=== PATIENT | female | born 1960 | race Caucasian/White ===

== ENCOUNTER → 2016-10-01 | Outpatient (CLI) | payer MEDICAID ==
--- NOTE | 2016-10-02 10:42 | MM ---
Reason for exam: screening (asymptomatic). Last mammogram was performed 1 year and 2 months ago. Physical Findings: A clinical breast exam by your physician is recommended on an annual basis and results should be correlated with mammographic findings. MG 3D Screening Mammo W/Cad Bilateral CC and MLO view(s) were taken. Prior study comparison: July 27, 2015, mammogram. May 11, 2014, mammogram. The breast tissue is heterogeneously dense. This may lower the sensitivity of mammography. Finding: There are typically benign round calcifications in both breasts. There is a chronic nodularity in the right breast. There is no discrete abnormality. ASSESSMENT: Benign, BI-RAD 2 RECOMMENDATION: Routine screening mammogram of both breasts in 1 year.
== END | disposition home or self-care (01) ==
LOC: RADMAMWWP 07:40
PROVIDERS: ATTEND Obstetrics & Gynecology
DX: Z12.31 Encounter for screening mammogram for malignant neoplasm of breast (principal)
CPT/HCPCS: 77063; G0202

== ENCOUNTER → 2016-11-20 | Outpatient (CLI) | payer MEDICAID ==
[2016-11-20 08:57] LABS: ALT 38 U/L (9-52); AST 22 U/L (14-36); Alkaline Phosphatase 103 U/L (38-126); Anion Gap 11 mmol/L; Blood Urea Nitrogen 17 mg/dL (7-17); Calcium 9.9 mg/dL (8.4-10.2); Carbon Dioxide 24 mmol/L (22-30); Chloride 105 mmol/L (98-107); Cholesterol 219 mg/dL (<200); Glucose 138 mg/dL (74-99); HDL Cholesterol 75 mg/dL (40-60); Non-African American GFR(MDRD) >60 (>60 ml/min/1.73 sqM); Potassium 4.9 mmol/L (3.5-5.1); Sodium 140 mmol/L (137-145); Total Bilirubin 0.7 mg/dL (0.2-1.3); Total Protein 7.6 g/dL (6.3-8.2); Triglycerides 143 mg/dL (<150)
[2016-11-20 09:07] LABS: CH 33.3; CHCM 33.7; HCT 46.4 % (34.0-46.0); HDW 2.44; HGB 14.9 gm/dL (11.4-16.0); MCH 31.9 pg (25.0-35.0); MCHC 32.2 g/dL (31.0-37.0); MCV 99.1 fL (80.0-100.0); Mean Platelet Volume 7.6; RBC 4.68 m/uL (3.80-5.40); RDW 12.7 % (11.5-15.5)
[2016-11-20 09:42] LABS: Hepatitis C Virus IgG Ab Negative (Negative); Hepatitis C Virus IgG Index 0.05
== END | disposition home or self-care (01) ==
LOC: LABWHC1 08:18
PROVIDERS: ATTEND Family Medicine
DX: R07.9 Chest pain, unspecified (principal); Z13.9 Encounter for screening, unspecified
CPT/HCPCS: 36415; 80053; 80061; 84443; 85027; 86803

== ENCOUNTER → 2016-11-23 | Outpatient (CLI) | payer MEDICAID ==
--- NOTE | 2016-11-23 11:00 | NM ---
EXAMINATION TYPE: NM stress cardiolite complete DATE OF EXAM: 11/23/2016 COMPARISON: NONE HISTORY: Chest pain TECHNIQUE: After the intravenous administration of 10.9 mCi Tc 99m Sestamibi - Rest images obtained 45 minutes post injection. The patient exercised using a TIM protocol and 1 minute prior to peak exercise was injected with 26.2 mCi Tc 99m Sestamibi - Stress images obtained 25 minutes post injecti on. FINDINGS: Targeted heart rate was achieved during performance of the study. Review of stress and rest SPECT mateusz ges demonstrates no distinct perfusion abnormality. Gated analysis shows normal wall motion with an estimated left ventricular ejection fraction of 65 %. IMPRESSION: 1. No stress-induced ischemic change
--- NOTE | 2016-11-23 11:27 | EST ---
DATE OF SERVICE: 11/23/2016 AGE: 56Y SEX: F HT: 5'6" WT: 187 lbs. Protocol Boyd: X Other: Cardiolite Stage: II Dur. of Exercise: 7:15 *Heart Rate Blood Pressure *Rest: 92 Rest: 156/106 * *Max. Achieved: 150 Maximum BP: 178/87 85% PMHR: 140 100% PMHR: 165 *METS: 7.7 INDICATIONS: Chest pain. MEDICATIONS: Norvasc, Toprol, Prilosec. Patient was exercised for a total period of 7 minutes and 15 seconds. Peak heart rate of 150 was achieved. Maximum blood pressure of 178/87 mmHg was noted. Resting EKG shows normal sinus rhythm with normal GA interval and QRS duration and normal ST-T waves. No ST segment depression suggestive of ischemia is noted. Patient complained of some shortness of breath during exercise. FINAL IMPRESSION: 1. There is no evidence of any ST segment depression to suggest ischemia during exercise. 2. Patient's exercise tolerance is below average. 3. The results of the nuclear study will follow.
== END ==
LOC: RADNMMAIN 07:56
PROVIDERS: ATTEND Family Medicine
DX: R07.9 Chest pain, unspecified (principal)
CPT/HCPCS: 93017; 78452; A9500

== ENCOUNTER → 2017-08-07 | Outpatient (CLI) | payer MEDICAID ==
[2017-08-07 08:53] LABS: ALT 55 U/L (9-52); AST 29 U/L (14-36); Albumin 4.2 g/dL (3.5-5.0); Alkaline Phosphatase 125 U/L (38-126); Anion Gap 13 mmol/L; Blood Urea Nitrogen 13 mg/dL (7-17); Carbon Dioxide 25 mmol/L (22-30); Chloride 104 mmol/L (98-107); Cholesterol 235 mg/dL (<200); Glucose 145 mg/dL (74-99); HDL Cholesterol 76 mg/dL (40-60); LDL Cholesterol,Calculated 132 mg/dL (0-99); Potassium 4.7 mmol/L (3.5-5.1); Sodium 142 mmol/L (137-145); Total Bilirubin 0.5 mg/dL (0.2-1.3); Total Protein 7.4 g/dL (6.3-8.2); Triglycerides 134 mg/dL (<150)
[2017-08-07 09:25] LABS: HCT 43.8 % (34.0-46.0); HGB 15.1 gm/dL (11.4-16.0); MCH 33.5 pg (25.0-35.0); MCHC 34.4 g/dL (31.0-37.0); MCV 97.4 fL (80.0-100.0); Mean Platelet Volume 7.8; Platelet Count 274 k/uL (150-450); RDW 12.7 % (11.5-15.5); WBC 7.4 k/uL (3.8-10.6)
[2017-08-07 12:34] LABS: Appearance,Urine Clear (Clear); Bilirubin,Urine Negative (Negative); Blood,Urine Negative (Negative); Color,Urine Yellow; Glucose,Urine (UA) Negative (Negative); Ketones,Urine Negative (Negative); Leukocyte Esterase,Urine Negative (Negative); PH, Urine 6.5 (5.0-8.0); Protein,Urine Negative (Negative); Specific Gravity,Urine 1.009 (1.001-1.035); Urobilinogen,Urine <2.0 mg/dL (<2.0)
== END | disposition home or self-care (01) ==
LOC: LABWHC1 08:09
PROVIDERS: ATTEND Family Medicine
DX: Z00.00 Encounter for general adult medical examination without abnormal findings (principal)
CPT/HCPCS: 36415; 80053; 80061; 81003; 85027

== ENCOUNTER → 2017-10-15 | Outpatient (CLI) | payer MEDICAID ==
[2017-10-15 14:07] LABS: HCT 44.8 % (34.0-46.0); HGB 15.3 gm/dL (11.4-16.0); MCH 32.9 pg (25.0-35.0); MCHC 34.1 g/dL (31.0-37.0); MCV 96.7 fL (80.0-100.0); Mean Platelet Volume 7.4; Platelet Count 250 k/uL (150-450); RBC 4.64 m/uL (3.80-5.40); RDW 12.4 % (11.5-15.5); WBC 8.6 k/uL (3.8-10.6)
[2017-10-15 14:25] LABS: Anion Gap 14 mmol/L; Blood Urea Nitrogen 16 mg/dL (7-17); Carbon Dioxide 24 mmol/L (22-30); Chloride 102 mmol/L (98-107); Potassium 4.4 mmol/L (3.5-5.1); Sodium 140 mmol/L (137-145)
--- NOTE | 2017-10-15 15:28 | XR ---
EXAMINATION TYPE: XR chest 2V DATE OF EXAM: 10/15/2017 COMPARISON: 05/19/2011 HISTORY: 57 year-old female shortness of breath and chest pain TECHNIQUE: Frontal and lateral views FINDINGS: The cardiomediastinal silhouette, aorta, and pulmonary vasculature are within normal limits. Some str letitia atelectasis at the left base. Mild degenerative disc disease mid to lower thoracic spine. No con solidation or pleural effusion. Cholecystectomy clips. IMPRESSION: No acute cardiopulmonary process.
== END | disposition home or self-care (01) ==
LOC: RADXRMAIN 13:14
PROVIDERS: ATTEND Internal Medicine Cardiovascular Disease
DX: R06.02 Shortness of breath (principal); R07.89 Other chest pain
CPT/HCPCS: 36415; 71046; 80051; 82565; 84443; 84520; 85027; 85379

== ENCOUNTER 2017-10-17 22:03 | Observation (INO) | payer MEDICAID ==
[2017-10-17] MEDS ORDERED: SODIUM CHLORIDE 0.9% 1,000 ML IV STA (22:21)
[2017-10-17] MEDS ORDERED: SODIUM CHLORIDE 0.9% 500 ML IV STA (22:21)
[2017-10-17] MEDS ORDERED: ASPIRIN 81 MG PO STA (22:21)
--- NOTE | 2017-10-17 22:33 | ED ---
Arrhythmia/Palpitations HPI - General Chief Complaint: Arrhythmia/Palpitations Stated Complaint: tachycardia Time Seen by Provider: 10/17/17 22:11 Source: patient, RN notes reviewed Mode of arrival: wheelchair Limitations: no limitations - History of Present Illness Initial Comments: This is a 57-year-old female who presents with complaints of the onset of exertional dyspnea for about one half weeks she states when she starts to walk and she does not walk fast their heart rate would get as high as 138. She also today complains some pain between her shoulder blades radiates down her back. Achy in nature mild to moderate that associated with any fevers chills nausea vomiting sweats cough. She has a history of hypertension and a family history heart disease with both her parents and brother that has been diagnosed with Nmhyu-Ktwqfvheh-Gmqse syndrome. Patient normally has reasonably controlled blood pressure. She does not smoke she states she drinks one or maybe 2 glasses of wine per day. MD Complaint: rapid heart beat - Related Data Home Medications Medication Instructions Recorded Confirmed Cholecalciferol [Vitamin D3] 1,000 unit PO DAILY 10/17/17 10/17/17 Cranberry Fruit Extract [Cranberry] 1,000 mg PO DAILY 10/17/17 10/17/17 Demanos Uti 1 tab PO DAILY 10/17/17 10/17/17 L. Rhamnosus GG/Inulin [Culturelle 1 tab PO DAILY 10/17/17 10/17/17 Chewable Tablet] Omeprazole [PriLOSEC] 20 mg PO AC-BID 10/17/17 10/17/17 Spironolactone 50 mg PO DAILY 10/17/17 10/17/17 amLODIPine [Norvasc] 5 mg PO DAILY 10/17/17 10/17/17 Allergies Allergy/AdvReac Type Severity Reaction Status Date / Time cefaclor [From Ceclor] Allergy Rash/Hives Verified 10/17/17 22:57 cefuroxime [From Ceftin] Allergy Rash/Hives Verified 10/17/17 22:57 cephalexin [From Keflex] Allergy Rash/Hives Verified 10/17/17 22:57 clarithromycin [From Biaxin] Allergy Rash/Hives Verified 10/17/17 22:57 dexamethasone [From Decadron] Allergy Unknown Verified 10/17/17 22:57 irbesartan [From Avapro] Allergy Anaphylaxis Verified 10/17/17 22:57 latex Allergy Anaphylaxis Verified 10/17/17 22:57 levofloxacin [From Levaquin] Allergy Anaphylaxis Verified 10/17/17 22:57 lidocaine Allergy Rash/Hives Verified 10/17/17 22:57 lomefloxacin [From Maxaquin] Allergy Anaphylaxis Verified 10/17/17 22:57 medroxyprogesterone Allergy Rash/Hives Verified 10/17/17 22:57 [From Provera] procaine [From Novocain] Allergy Anaphylaxis Verified 10/17/17 22:57 Sulfa (Sulfonamide Allergy Swelling Verified 10/17/17 22:57 Antibiotics) trimethoprim Allergy Dyspnea Verified 10/17/17 22:57 vancomycin Allergy Rash/Hives Verified 10/17/17 22:57 verapamil [From Calan] Allergy Rash/Hives Verified 10/17/17 22:57 codeine AdvReac Nausea & Verified 10/17/17 22:57 Vomiting hydromorphone [From Dilaudid] AdvReac Hallucinati Verified 10/17/17 22:57 ons meperidine [From Demerol] AdvReac Rash/Hives Verified 10/17/17 22:57 metoprolol [From Lopressor] AdvReac Unknown Verified 10/17/17 22:57 prednisone AdvReac Rash/Hives Verified 10/17/17 22:57 Review of Systems ROS Statement: Those systems with pertinent positive or pertinent negative responses have been documented in the HPI. ROS Other: All systems not noted in ROS Statement are negative. Past Medical History Past Medical History: Hypertension Additional Past Medical History / Comment(s): meniere's disease. History of Any Multi-Drug Resistant Organisms: None Reported Past Surgical History: Adenoidectomy, Appendectomy, Section, Cholecystectomy, Hysterectomy, Tonsillectomy Past Psychological History: No Psychological Hx Reported Smoking Status: Never smoker Past Alcohol Use History: Daily Past Drug Use History: None Reported General Exam - General Exam Comments Initial Comments: This is a well-developed well-nourished awake alert oriented 3 female her repeat blood pressure was 209/99. Heart rate on my exam was 131. Limitations: no limitations General appearance: alert, in no apparent distress Head exam: Present: atraumatic, normocephalic, normal inspection Eye exam: Present: normal appearance, PERRL, EOMI. Absent: scleral icterus, conjunctival injection, periorbital swelling ENT exam: Present: normal exam, mucous membranes moist Neck exam: Present: normal inspection, full ROM, other (No stridor JVD or bruits though there is a prominent carotid pulse on the right.). Absent: tenderness, meningismus, lymphadenopathy Respiratory exam: Present: normal lung sounds bilaterally. Absent: respiratory distress, wheezes, rales, rhonchi, stridor Cardiovascular Exam: Present: regular rate, normal rhythm, normal heart sounds, other (Pulses are equal bilaterally to the radial and posterior tibial bilaterally pulses were +2.). Absent: systolic murmur, diastolic murmur, rubs, gallop, clicks GI/Abdominal exam: Present: soft, normal bowel sounds. Absent: distended, tenderness, guarding, rebound, rigid, bruit, pulsatile mass, hernia Extremities exam: Present: normal inspection, full ROM, normal capillary refill. Absent: tenderness, pedal edema, joint swelling, calf tenderness Back exam: Present: normal inspection, full ROM. Absent: tenderness, CVA tenderness (R), CVA tenderness (L), muscle spasm, paraspinal tenderness, vertebral tenderness Neurological exam: Present: alert, oriented X3, CN II-XII intact Psychiatric exam: Present: normal affect, normal mood Skin exam: Present: warm, dry, intact, normal color. Absent: rash Course Vital Signs 10/17/17 10/17/17 10/17/17 22:07 22:11 22:55 Temperature 98 F Pulse Rate 150 H 107 H Pulse Rate [ 137 H [employer] ] Respiratory 24 18 Rate Blood Pressure 234/114 162/87 O2 Sat by Pulse 99 98 Oximetry 10/17/17 23:30 Temperature Pulse Rate 109 H Pulse Rate [ [employer]ist ] Respiratory 18 Rate Blood Pressure 165/94 O2 Sat by Pulse 98 Oximetry - Reevaluation(s) Reevaluation #1: 10/17/17 23:52 Reevaluation patient reveals she still having some back pain in her heart rate is improved markedly. EKG Findings - EKG Results: EKG: interpreted by KASSIDY, sinus rhythm (Sinus tachycardia rate of 137. 01 50 QRS duration 80 QT since QTC at 278/419 minimal voltage criteria for LVH no definite evidence of delta waves.) Medical Decision Making - Medical Decision Making I did discuss findings with the patient she does demonstrate some evidence of suspicion for coronary artery disease. Family history is present she has demonstrate symptoms of exertional dyspnea and back pain. She is agreed to admission for a cardiac workup. Her d-dimer is negative at this time making PE and/or aortic considerations less likely. X-ray is unremarkable. - Lab Data Result diagrams: 10/17/17 22:15 10/17/17 22:15 Lab Results 10/17/17 10/17/17 10/17/17 Range/Units 22:15 22:15 22:15 WBC 12.4 H (3.8-10.6) k/uL RBC 4.79 (3.80-5.40) m/uL Hgb 15.4 (11.4-16.0) gm/dL Hct 45.9 (34.0-46.0) % MCV 95.9 (80.0-100.0) fL MCH 32.1 (25.0-35.0) pg MCHC 33.5 (31.0-37.0) g/dL RDW 12.4 (11.5-15.5) % Plt Count 268 (150-450) k/uL Neutrophils % 62 % Lymphocytes % 29 % Monocytes % 5 % Eosinophils % 2 % Basophils % 0 % Neutrophils # 7.7 (1.3-7.7) k/uL Lymphocytes # 3.6 (1.0-4.8) k/uL Monocytes # 0.7 (0-1.0) k/uL Eosinophils # 0.2 (0-0.7) k/uL Basophils # 0.0 (0-0.2) k/uL PT (9.0-12.0) sec INR (<1.2) APTT (22.0-30.0) sec D-Dimer (<0.60) mg/L FEU Sodium 139 (137-145) mmol/L Potassium 3.8 (3.5-5.1) mmol/L Chloride 102 (98-107) mmol/L Carbon Dioxide 21 L (22-30) mmol/L Anion Gap 16 mmol/L BUN 16 (7-17) mg/dL Creatinine 0.96 (0.52-1.04) mg/dL Est GFR (CKD-EPI)AfAm 77 (>60 ml/min/1.73 sqM) Est GFR (CKD-EPI)NonAf 66 (>60 ml/min/1.73 sqM) Glucose 203 H (74-99) mg/dL Calcium 10.0 (8.4-10.2) mg/dL Magnesium 1.9 (1.6-2.3) mg/dL Total Bilirubin 0.4 (0.2-1.3) mg/dL AST 32 (14-36) U/L ALT 52 (9-52) U/L Alkaline Phosphatase 126 (38-126) U/L Total Creatine Kinase 42 (30-135) U/L CK-MB (CK-2) 0.5 (0.0-2.4) ng/mL CK-MB (CK-2) Rel Index 1.2 Troponin I <0.012 (0.000-0.034) ng/mL Total Protein 7.4 (6.3-8.2) g/dL Albumin 4.6 (3.5-5.0) g/dL 10/17/17 Range/Units 22:15 WBC (3.8-10.6) k/uL RBC (3.80-5.40) m/uL Hgb (11.4-16.0) gm/dL Hct (34.0-46.0) % MCV (80.0-100.0) fL MCH (25.0-35.0) pg MCHC (31.0-37.0) g/dL RDW (11.5-15.5) % Plt Count (150-450) k/uL Neutrophils % % Lymphocytes % % Monocytes % % Eosinophils % % Basophils % % Neutrophils # (1.3-7.7) k/uL Lymphocytes # (1.0-4.8) k/uL Monocytes # (0-1.0) k/uL Eosinophils # (0-0.7) k/uL Basophils # (0-0.2) k/uL PT 10.0 (9.0-12.0) sec INR 1.0 (<1.2) APTT 23.9 (22.0-30.0) sec D-Dimer 0.20 (<0.60) mg/L FEU Sodium (137-145) mmol/L Potassium (3.5-5.1) mmol/L Chloride (98-107) mmol/L Carbon Dioxide (22-30) mmol/L Anion Gap mmol/L BUN (7-17) mg/dL Creatinine (0.52-1.04) mg/dL Est GFR (CKD-EPI)AfAm (>60 ml/min/1.73 sqM) Est GFR (CKD-EPI)NonAf (>60 ml/min/1.73 sqM) Glucose (74-99) mg/dL Calcium (8.4-10.2) mg/dL Magnesium (1.6-2.3) mg/dL Total Bilirubin (0.2-1.3) mg/dL AST (14-36) U/L ALT (9-52) U/L Alkaline Phosphatase (38-126) U/L Total Creatine Kinase (30-135) U/L CK-MB (CK-2) (0.0-2.4) ng/mL CK-MB (CK-2) Rel Index Troponin I (0.000-0.034) ng/mL Total Protein (6.3-8.2) g/dL Albumin (3.5-5.0) g/dL - Radiology Data Radiology results: report reviewed (I did review the imaging and reports no acute findings.), image reviewed Critical Care Time Critical Care Time: Yes Critical Care Time: 31 minutes of total care time which includes the history physical labs x-rays reevaluation the patient. Review of imaging and lab work. Discussion with the patient regarding the findings admission orders. Discussed with the admitting physician documentation of the above. Disposition Clinical Impression: Chest pain, Tachycardia, Angina effort Disposition: ADMITTED IP TO THIS [facility] Condition: Stable Referrals: You Blackwell MD [Primary Care Provider] - 1-2 days
[2017-10-17 22:36] LABS: Basophils % (A) 0 %; Eosinophils # (A) 0.2 k/uL (0-0.7); Eosinophils % (A) 2 %; HCT 45.9 % (34.0-46.0); HGB 15.4 gm/dL (11.4-16.0); Lymphocytes # (A) 3.6 k/uL (1.0-4.8); Lymphocytes % (A) 29 %; MCH 32.1 pg (25.0-35.0); MCHC 33.5 g/dL (31.0-37.0); MCV 95.9 fL (80.0-100.0); Mean Platelet Volume 8.1; Monocytes # (A) 0.7 k/uL (0-1.0); Monocytes % (A) 5 %; Neutrophils # (A) 7.7 k/uL (1.3-7.7); Neutrophils % (A) 62 %; Platelet Count 268 k/uL (150-450); RBC 4.79 m/uL (3.80-5.40); RDW 12.4 % (11.5-15.5); WBC 12.4 k/uL (3.8-10.6)
[2017-10-17 22:46] LABS: Albumin 4.6 g/dL (3.5-5.0); Magnesium 1.9 mg/dL (1.6-2.3); Potassium 3.8 mmol/L (3.5-5.1); Total Bilirubin 0.4 mg/dL (0.2-1.3); Total Protein 7.4 g/dL (6.3-8.2)
[2017-10-17 22:50] LABS: Creatine Kinase 42 U/L (30-135)
[2017-10-17 23:00] LABS: D-Dimer 0.2 mg/L FEU (<0.60); Partial Thromboplastin Time 23.9 sec (22.0-30.0)
[2017-10-17 23:04] LABS: Creatine Kinase MB 0.5 ng/mL (0.0-2.4); Troponin I <0.012 ng/mL (0.000-0.034)
--- NOTE | 2017-10-17 23:28 | XR ---
EXAM: XR Chest, 2 Views CLINICAL HISTORY: dysrhythmia TECHNIQUE: Frontal and lateral views of the chest. COMPARISON: 10/15/17 FINDINGS: Lungs: Unremarkable. No consolidation. Pleural space: Unremarkable. No pneumothorax. Heart: Unremarkable. No cardiomegaly. Mediastinum: Unremarkable. Bones/joints: Unremarkable. IMPRESSION: Normal chest x-rays.
[2017-10-17] MEDS ORDERED: SODIUM CHLORIDE 0.9% 1,000 ML IV SCH (23:45)
[2017-10-17] MEDS ORDERED: NITROGLYCERIN SL TABS 0.4 MG TAB SUBLINGUAL PRN (23:54)
[2017-10-17] MEDS ORDERED: HEPARIN SODIUM,PORCINE 5,000 UNIT/ML 1 ML VIAL IV ONE (23:54)
[2017-10-18] MEDS ORDERED: HEPARIN SODIUM,PORCINE/D5W PMX 25,000 UNIT in DEXTROSE/WATER 1 500ML.BAG IV SCH (00:15)
[2017-10-18 00:51] VITALS: BMI 31.5
[2017-10-18] MEDS: NITROGLYCERIN OINT 1 INCH/GM PACKET TOPICAL SCH ×3 (02:47→11:42)
[2017-10-18 06:07] LABS: Cholesterol 189 mg/dL (<200); HDL Cholesterol 65 mg/dL (40-60); LDL Cholesterol,Calculated 96 mg/dL (0-99); Triglycerides 142 mg/dL (<150)
[2017-10-18 06:12] LABS: Creatine Kinase 32 U/L (30-135)
[2017-10-18 06:26] LABS: Creatine Kinase MB 0.5 ng/mL (0.0-2.4); Troponin I <0.012 ng/mL (0.000-0.034)
[2017-10-18] MEDS ORDERED: PANTOPRAZOLE 40 MG TABLET PO SCH (07:30)
[2017-10-18 08:00] VITALS: PULSE 74; TEMP 98
[2017-10-18] MEDS ORDERED: ASPIRIN 325 MG TAB PO SCH (09:00)
[2017-10-18] MEDS ORDERED: amLODIPine 5 MG TAB PO SCH (09:00)
[2017-10-18] MEDS ORDERED: SPIRONOLACTONE 25 MG TAB PO SCH (09:00)
--- NOTE | 2017-10-18 11:07 | P.CRDCN ---
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 Daily history of WPW. She presents to the hospital with symptoms of exertional shortness of breath which she states that she's been experiencing for the past one and a half to 2 weeks. She also notices that when she exerts herself or goes for a walk, that her heart rate goes up into the 07/10/1939 range. She intermittently also gets a discomfort between her shoulder blades which radiates down her back. Patient was seen by Dr. Morales in the office, and she states that she underwent an echocardiogram with Doppler study yesterday. He also recommended that the patient wear a Holter monitor which will be performed in November, because of the persistent symptoms, patient came to the emergency room for further evaluation. Her EKG on arrival here showed a sinus tachycardia with a heart rate in the 130s. Blood pressure on admission to 34/114. Chest x- ray is normal. Blood pressure 138/90 with a heart rate in the 70s, temperature 98.0, 97% on room air. White blood cell count 12.4, hemoglobin 15.4, platelet count 268. D-dimer 0.2, sodium 139, potassium 3.8, BUN 16, creatinine 0.9. Troponins are negative 2. TSH level was done as an outpatient came back to be 1.7. At the time of my examination this morning, she is currently symptom free , however she states she mostly gets is when ambulating. Past Medical History Past Medical History: Hypertension Additional Past Medical History / Comment(s): meniere's disease. History of Any Multi-Drug Resistant Organisms: None Reported Past Surgical History: Adenoidectomy, Appendectomy, Section, Cholecystectomy, Hysterectomy, Tonsillectomy Past Anesthesia/Blood Transfusion Reactions: No Reported Reaction Past Psychological History: No Psychological Hx Reported Smoking Status: Never smoker Past Alcohol Use History: Daily Past Drug Use History: None Reported - Past Family History Mother Family Medical History: Congestive Heart Failure (CHF), COPD, CVA/TIA, Diabetes Mellitus Father Family Medical History: Cancer, Coronary Artery Disease (CAD), Hyperlipidemia, Hypertension Brother(s) Additional Family Medical History / Comment(s): arreola-parkison disease Medications and Allergies Home Medications Medication Instructions Recorded Confirmed Type Cholecalciferol [Vitamin D3] 1,000 unit PO DAILY 10/17/17 10/17/17 History Cranberry Fruit Extract [Cranberry] 1,000 mg PO DAILY 10/17/17 10/17/17 History Demanos Uti 1 tab PO DAILY 10/17/17 10/17/17 History L. Rhamnosus GG/Inulin [Culturelle 1 tab PO DAILY 10/17/17 10/17/17 History Chewable Tablet] Omeprazole [PriLOSEC] 20 mg PO AC-BID 10/17/17 10/17/17 History Spironolactone 50 mg PO DAILY 10/17/17 10/17/17 History amLODIPine [Norvasc] 5 mg PO DAILY 10/17/17 10/17/17 History Allergies Allergy/AdvReac Type Severity Reaction Status Date / Time cefaclor [From Ceclor] Allergy Rash/Hives Verified 10/17/17 22:57 cefuroxime [From Ceftin] Allergy Rash/Hives Verified 10/17/17 22:57 cephalexin [From Keflex] Allergy Rash/Hives Verified 10/17/17 22:57 clarithromycin [From Biaxin] Allergy Rash/Hives Verified 10/17/17 22:57 dexamethasone [From Decadron] Allergy Unknown Verified 10/17/17 22:57 irbesartan [From Avapro] Allergy Anaphylaxis Verified 10/17/17 22:57 latex Allergy Anaphylaxis Verified 10/17/17 22:57 levofloxacin [From Levaquin] Allergy Anaphylaxis Verified 10/17/17 22:57 lidocaine Allergy Rash/Hives Verified 10/17/17 22:57 lomefloxacin [From Maxaquin] Allergy Anaphylaxis Verified 10/17/17 22:57 medroxyprogesterone Allergy Rash/Hives Verified 10/17/17 22:57 [From Provera] procaine [From Novocain] Allergy Anaphylaxis Verified 10/17/17 22:57 Sulfa (Sulfonamide Allergy Swelling Verified 10/17/17 22:57 Antibiotics) trimethoprim Allergy Dyspnea Verified 10/17/17 22:57 vancomycin Allergy Rash/Hives Verified 10/17/17 22:57 verapamil [From Calan] Allergy Rash/Hives Verified 10/17/17 22:57 codeine AdvReac Nausea & Verified 10/17/17 22:57 Vomiting hydromorphone [From Dilaudid] AdvReac Hallucinati Verified 10/17/17 22:57 ons meperidine [From Demerol] AdvReac Rash/Hives Verified 10/17/17 22:57 metoprolol [From Lopressor] AdvReac Unknown Verified 10/17/17 22:57 prednisone AdvReac Rash/Hives Verified 10/17/17 22:57 Physical Exam Vitals: Vital Signs Temp Pulse Pulse Resp BP BP Pulse Ox 10/18/17 08:00 74 10/18/17 07:54 98.0 F 74 16 137/92 97 10/18/17 04:00 82 16 138/91 96 10/18/17 00:11 98.3 F 111 H 18 147/103 95 10/18/17 00:09 104 H 20 164/85 97 10/17/17 23:30 109 H 18 165/94 98 10/17/17 22:55 107 H 18 162/87 98 10/17/17 22:11 137 H 10/17/17 22:07 98 F 150 H 24 234/114 99 Intake and Output 10/17/17 10/18/17 10/18/17 22:59 06:59 14:59 Intake Total 240 137.333 Balance 240 137.333 Intake: IV 240 Heparin Sodium,Porcine/ 120 D5w Pmx 25,000 unit In Dextrose/Water 1 500ml. bag @ 12 UNITS/KG/HR 20. 68 mls/hr IV .Q24H [facility] Rx #:[id number] Sodium Chloride 0.9% 1, 120 000 ml @ 20 mls/hr IV . Q24H [facility] Rx#:[id number] Intake, IV Titration 137.333 Amount Heparin Sodium,Porcine/ 137.333 D5w Pmx 25,000 unit In Dextrose/Water 1 500ml. bag @ 12 UNITS/KG/HR 20. 68 mls/hr IV .Q24H [facility] Rx #:[id number] Other: Weight 86.183 kg 88.6 kg PHYSICAL EXAMINATION: HEENT: Head is atraumatic, normocephalic. Pupils equal, round. Neck is supple. There is no elevated jugular venous pressure. HEART EXAMINATION: Heart S1, S2 normal. No murmur or gallop heard. CHEST EXAMINATION: Lungs are clear to auscultation and precussion. No chest wall tenderness is noted on palpation or with deep breathing. ABDOMEN: Soft, nontender. Bowel sounds are heard. No organomegaly noted. EXTREMITIES: 2+ peripheral pulses with no evidence of peripheral edema and no calf tenderness noted. NEUROLOGIC patient is awake, alert and oriented -3. . Results 10/17/17 22:15 10/17/17 22:15 Cardiac Enzymes 10/17/17 10/17/17 10/18/17 Range/Units 22:15 22:15 05:23 AST 32 (14-36) U/L CK-MB (CK-2) 0.5 0.5 (0.0-2.4) ng/mL Troponin I <0.012 <0.012 (0.000-0.034) ng/mL Coagulation 10/17/17 10/18/17 Range/Units 22:15 05:23 PT 10.0 (9.0-12.0) sec APTT 23.9 46.7 H (22.0-30.0) sec Lipids 10/18/17 Range/Units 05:23 Triglycerides 142 (<150) mg/dL Cholesterol 189 (<200) mg/dL HDL Cholesterol 65 H (40-60) mg/dL CBC 10/17/17 Range/Units 22:15 WBC 12.4 H (3.8-10.6) k/uL RBC 4.79 (3.80-5.40) m/uL Hgb 15.4 (11.4-16.0) gm/dL Hct 45.9 (34.0-46.0) % Plt Count 268 (150-450) k/uL Comprehensive Metabolic Panel 10/17/17 Range/Units 22:15 Sodium 139 (137-145) mmol/L Potassium 3.8 (3.5-5.1) mmol/L Chloride 102 (98-107) mmol/L Carbon Dioxide 21 L (22-30) mmol/L BUN 16 (7-17) mg/dL Creatinine 0.96 (0.52-1.04) mg/dL Glucose 203 H (74-99) mg/dL Calcium 10.0 (8.4-10.2) mg/dL AST 32 (14-36) U/L ALT 52 (9-52) U/L Alkaline Phosphatase 126 (38-126) U/L Total Protein 7.4 (6.3-8.2) g/dL Albumin 4.6 (3.5-5.0) g/dL Current Medications Generic Name Dose Route Start Last Admin Trade Name Freq PRN Reason Stop Dose Admin Amlodipine Besylate 5 mg 10/18/17 09:00 10/18/17 08:05 Norvasc PO 5 mg DAILY [facility] Administration Aspirin 325 mg 10/18/17 09:00 10/18/17 08:05 Aspirin PO 325 mg DAILY [facility] Administration Heparin Sodium/Dextrose 25,000 500 mls @ 20.68 mls/hr 10/18/17 00:15 07:03 unit/ IV Solution IV 13.6 units/kg/hr .Q24H [facility] 23.44 mls/hr Protocol Titration 12 UNITS/KG/HR Sodium Chloride 1,000 mls @ 20 mls/hr 10/17/17 23:45 10/18/17 00:02 Saline 0.9% IV 20 mls/hr .Q24H [facility] Administration Nitroglycerin 1 inch 10/18/17 00:00 10/18/17 06:36 Nitro-Bid Oint TOPICAL Not Given Q6HR [facility] Nitroglycerin 0.4 mg 10/17/17 23:54 Nitrostat SUBLINGUAL Q5M PRN Chest Pain Pantoprazole Sodium 40 mg 10/18/17 07:30 10/18/17 06:37 Protonix PO 40 mg AC-BID B[facility] Administration Spironolactone 50 mg 10/18/17 09:00 10/18/17 08:05 Aldactone PO 50 mg DAILY BETH Administration Intake and Output 10/17/17 10/18/17 10/18/17 22:59 06:59 14:59 Intake Total 240 137.333 Balance 240 137.333 Intake: IV 240 Heparin Sodium,Porcine/ 120 D5w Pmx 25,000 unit In Dextrose/Water 1 500ml. bag @ 12 UNITS/KG/HR 20. 68 mls/hr IV .Q24H [facility] Rx #:[id number] Sodium Chloride 0.9% 1, 120 000 ml @ 20 mls/hr IV . Q24H [facility] Rx#:[id number] Intake, IV Titration 137.333 Amount Heparin Sodium,Porcine/ 137.333 D5w Pmx 25,000 unit In Dextrose/Water 1 500ml. bag @ 12 UNITS/KG/HR 20. 68 mls/hr IV .Q24H [facility] Rx #:[id number] Other: Weight 86.183 kg 88.6 kg 10/17/17 22:15 10/17/17 22:15 EKG Interpretations (text) EKG shows a sinus tachycardia. Subsequent EKG performed this morning shows normal sinus rhythm. Assessment and Plan Plan: Assessment and plan #1 symptoms of exertional shortness of breath with associated scapular discomfort. EKG on admission showed a sinus tachycardia with a heart rate in the 130s. Troponins are negative 2. #2 hypertension, accelerated #3 borderline diabetes Plan We will obtain echo results, from the most recent echo performed yesterday or the day prior [facility]. TSH was performed as an outpatient which came back to be normal. Chest x-ray normal. D-dimer negative. If third troponin is negative, we'll discontinue the IV heparin, we'll decrease aspirin 81 mg daily, consider the addition of a small dose of beta iona for optimal blood pressure and heart rate control. Would also recommend patient undergo stress testing. Further recommendations to follow. DNP note has been reviewed, I agree with a documented findings and plan of care. Patient was seen and examined.
[2017-10-18 11:19] VITALS: BP 135/85; RESP 14
[2017-10-18 12:12] LABS: Creatine Kinase 35 U/L (30-135)
[2017-10-18 12:22] LABS: Creatine Kinase MB 0.6 ng/mL (0.0-2.4); Troponin I <0.012 ng/mL (0.000-0.034)
[2017-10-18] MEDS ORDERED: METOPROLOL SUCCINATE (ER) 25 MG TAB.ER.24H PO SCH (12:45)
[2017-10-18] MEDS ORDERED: RX INFO: IV CONTRAST WAS GIVEN 1 EACH MISC MISCELLANE PRN (14:14)
--- NOTE | 2017-10-18 15:04 | CT ---
EXAMINATION TYPE: CT angio chest DATE OF EXAM: 10/18/2017 COMPARISON: NONE HISTORY: Chest and back pain, difficulty breathing. CT DLP: 328.1 mGycm. Automated Exposure Control for Dose Reduction was Utilized. CONTRAST: CTA scan of the thorax is performed with IV Contrast, patient injected with 72 mL of Isovue 370, pulm onary embolism protocol. MIP Images are created on CT scanner and reviewed. FINDINGS: LUNGS: There is a lingular pleural parenchymal scarring. A 3 mm left lower lobe pulmonary nodule that is solid in nature is seen in series 5 image 96. Right lower lobe linear pleural parenchymal scarrin g is present. Lungs are grossly clear, there is no concerning parenchymal mass or nodule identified. There is no pleural effusion or pneumothorax seen. The tracheobronchial tree is patent. MEDIASTINUM: There is satisfactory enhancement of the pulmonary artery and its branches, there is no CT evidence for pulmonary embolism. There are no greater than 1 cm hilar or mediastinal lymph nodes. No cardiomegaly or pericardial effusion is seen. Ascending thoracic aorta is nonenlarged measuring 3.7 cm aortic root is upper limits of normal measuring 3.9 cm. No evidence of aortic dissection is s een in the thoracic aorta. OTHER: There is herniation of mesenteric fat through the diaphragmatic hiatus into the posterior medi astinum slightly impressing upon the esophagus. No gastroesophageal hiatal hernia. Gallbladder is haily gically absent. IMPRESSION: 1. No evidence of pulmonary embolus. 2. No focal consolidation, pleural effusion or pneumothorax. 3. 3 mm left basilar pulmonary nodule for which follow-up in 12 months is recommended to ensure stabi lity.
--- NOTE | 2017-10-18 16:30 | HP ---
HISTORY AND PHYSICAL HISTORY AND PHYSICAL AND DISCHARGE SUMMARY: DATE OF SERVICE: 10/18/17. DATE OF DISCHARGE: 10/18/17. PRESENTING COMPLAINT: Short of breath. HISTORY OF PRESENTING COMPLAINT: This is a pleasant 57-year-old patient of Dr. Blackwell. Chronic stable medical conditions include hypertension, Meniere disease, GERD. The patient for 2 weeks noted that if she would walk, she would get short of breath and the heart rate would go up and then if she will sit down, she will get better. This was coming along for 2 weeks. There was no dizziness. No lightheadedness. No fever. No cough. The patient has got no edema. The patient has got chronic slight edema lower extremity but no worse than before. She may have a little bit of heaviness in the chest she said and sometimes going into the shoulders, but symptoms will get better with rest. The patient did have a stress test last over a year ago that was negative. The patient has got otherwise a good exercise tolerance and good health. Denies use of any recreational drugs. REVIEW OF SYSTEMS: CONSTITUTIONAL: None. HEENT: None. RESPIRATORY: As above. CARDIOVASCULAR: As above. GASTROINTESTINAL: Heartburn. GENITOURINARY: None. MUSCULOSKELETAL: None. DERMATOLOGIC, HEMATOLOGIC, LYMPHATIC: None. PSYCHIATRY: None. NEUROLOGICAL: None. PAST MEDICAL HISTORY: Hypertension, Meniere disease, GERD. PAST SURGICAL HISTORY: Adenoidectomy, appendectomy, , cholecystectomy, hysterectomy, tonsillectomy. SOCIAL HISTORY: Drinks a glass of wine at night, probably 2 on the weekends. Does not smoke. 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 Lives by herself. FAMILY HISTORY: Congestive heart failure, COPD, stroke, diabetes. HOME MEDICATIONS: 1. Cranberry 1000 mg p.o. daily. 2. chewable tablets 1 tab p.o. daily. 3. Vitamin D3 1000 units p.o. daily. 4. Norvasc 5 mg p.o. daily. 5. Aldactone 50 mg p.o. daily. 6. Prilosec 20 mg p.o. b.i.d. ALLERGY: LIST IS LONG INCLUDING CECLOR, CEFTIN, KEFLEX, CLARITHROMYCIN, DEXAMETHASONE, [QAMARKER], LATEX, LEVAQUIN, LIDOCAINE, HYDROXYPROGESTERONE, MUSHROOM, PROCAINE, SULFA, TRIMETHOPRIM, VANCOMYCIN, VERAPAMIL, CODEINE, HYDROMORPHONE, MEPERIDINE, PREDNISONE. PHYSICAL EXAMINATION: Temperature 98, pulse 74, respiration 16, blood pressure 137/72, pulse ox 97% on room air. GENERAL APPEARANCE: Well built, BMI 32.5 sitting up. EYES: Pupils equal. Conjunctivae normal. HEENT: External appearance of nose and ears normal. Oral cavity normal. NECK: JVD not raised. Mass not palpable. RESPIRATORY: Effort, lungs are clear. CARDIOVASCULAR: First and second sounds normal. No edema. ABDOMEN: Soft, nontender. Liver and spleen not palpable. LYMPHATIC: No lymph node palpable in the neck or axillae. PSYCHIATRY: Alert and oriented x3. Mood and affect normal. NEUROLOGICAL: Pupils equal, grossly intact. Power and sensation grossly intact. INVESTIGATIONS: White count 12.4, hemoglobin 15.4, potassium 3.8. BUN and creatinine are normal. Troponin x3 negative. EKG: Sinus tachycardia. ASSESSMENT: 1. This patient presents with shortness of breath with exertion. No other signs of clinical congestive heart failure. Angina is a possibility, pulmonary embolism to be ruled out. 2. Essential hypertension. 3. Meniere disease. PLAN: Cardiology was consulted. Seen by Dr. Sachi Mendez, who okayed the patient to be discharged. I did order a CT scan of the chest that came back negative for PE. The patient will be sent home on a small dose of beta iona. DC MEDICATIONS: 1. Norvasc 5 mg p.o. daily. 2. Toprol-XL 25 mg a day. 3. Aspirin 81 mg a day. 4. Prilosec 20 mg b.i.d. 5. Aldactone 50 mg a day. FOLLOWUP: Follow up with Dr. Blackwell in 3 days. Follow up with Cardiology; they are arranging for an outpatient stress test. Care was discussed with the patient. MMODL / IJN: [id number] /
[2017-10-19] MEDS ORDERED: ASPIRIN 81 MG PO SCH (09:00)
== END 2017-10-18 16:22 | disposition home or self-care (01) ==
LOC: EC 22:03 → 6SEL 23:54
PROVIDERS: ADMIT Hospitalist; ATTEND Hospitalist
DX: R06.02 Shortness of breath (principal); R06.00 Dyspnea, unspecified; R00.0 Tachycardia, unspecified; R00.2 Palpitations; M54.89 Other dorsalgia; R60.0 Localized edema; R73.03 Prediabetes; I10 Essential (primary) hypertension; K21.9 Gastro-esophageal reflux disease without esophagitis; H81.09 Meniere's disease, unspecified ear; Z90.49 Acquired absence of other specified parts of digestive tract; Z80.9 Family history of malignant neoplasm, unspecified; Z83.3 Family history of diabetes mellitus; Z82.5 Family history of asthma and other chronic lower respiratory diseases; Z82.49 Family history of ischemic heart disease and other diseases of the circulatory system; Z82.3 Family history of stroke; Z79.899 Other long term (current) drug therapy; Z88.1 Allergy status to other antibiotic agents; Z91.040 Latex allergy status; Z88.5 Allergy status to narcotic agent; Z88.2 Allergy status to sulfonamides; Z88.8 Allergy status to other drugs, medicaments and biological substances; Z91.018 Allergy to other foods; Z91.048 Other nonmedicinal substance allergy status
CPT/HCPCS: 99291 ×2; 96361 ×3; 96376 ×2; 96374 ×2; 36415; 93005; 85379; 80061; 80053; 82550 ×2; 82553 ×2; 83735; 84484 ×2; 85025; 85610; 85730 ×2; 71046; 71275; G0378 ×2; J1644 ×2; Q9967

== ENCOUNTER → 2018-04-29 | Outpatient (CLI) | payer MEDICAID ==
--- NOTE | 2018-04-29 07:52 | US ---
EXAMINATION TYPE: US pelvis complete transvag DATE OF EXAM: 04/29/2018 COMPARISON: NONE CLINICAL HISTORY: R19.9 R ADNEXAL MASS. Partial hysterectomy. History of right ovarian cyst 2013 TECHNIQUE: Transvaginal (TV) and Transabdominal (TA) . Transabdominal sonographic images of the pel vis were acquired. Transvaginal sonographic images were medically necessary to better assess the fol lowing anatomy: ovaries Date of LMP: unknown EXAM MEASUREMENTS: Uterus: Surgically absent Endometrial Stripe: Surgically absent Right Ovary: unable to visualize Left Ovary: unable to visualize 1. Uterus: Surgically absent, vaginal cuff = 0.6cm 2. Endometrium: Surgically absent 3. Right Ovary: Obscured by overlying bowel gas 4. Left Ovary: Obscured by overlying bowel gas 5. Bilateral Adnexa: appears wnl IMPRESSION: Surgical absence of the uterus. Ovaries are not visualized likely related to atrophy and overlying bowel. No adnexal masses are seen. If there is further suspicion for ovarian mass MRI could be performed.
--- NOTE | 2018-04-29 10:56 | BD ---
EXAMINATION TYPE: Axial Bone Density DATE OF EXAM: 04/29/2018 COMPARISON: NONE CLINICAL HISTORY: Postmenopausal female. Osteoporosis screening. Height: 5 FT 5 1/2 IN Weight: 195 FRAX RISK QUESTIONS: History of Fracture in Adulthood: YES RISK FACTORS HISTORY OF: Family History of Osteoporosis: YES Active: YES Postmenopausal woman: PART DONTAEST AGE 53 MEDICATIONS: Additional Medications: SPIROLACTONE, PRILOSEC, CARDIZEM Additional History: EXAM MEASUREMENTS: Bone mineral densitometry was performed using the [employer] System. Bone mineral density as measured about the Lumbar spine is: ----- L1-L4(G/cm2): 1.081 T Score Values are as follows: ----- L2: -1.1 ----- L3: -0.6 ----- L4: -0.5 ----- L1-L4: -0.8 BASELINE Bone mineral density about the R hip (g/cm2): 0.839 Bone mineral density about the L hip (g/cm2): 0.872 T Score values are as follows: -----R Neck: -1.4 -----L Neck: -1.2 -----R Total: -1.0 -----L Total: -0.7 BASELINE IMPRESSION: Osteopenia (T Score between -2.5 and -1) with regards to the femoral necks. There is slightly increased risk of fracture and the patient may be considered for treatment. Re-Screen 2-5 years. NOTE: T-SCORE=SD OF THE YOUNG ADULT MEAN.
--- NOTE | 2018-05-05 09:39 | MM ---
Reason for exam: screening (asymptomatic). Last mammogram was performed 1 year and 7 months ago. Physical Findings: A clinical breast exam by your physician is recommended on an annual basis and results should be correlated with mammographic findings. MG 3D Screening Mammo W/Cad Bilateral CC and MLO view(s) were taken. Prior study comparison: October 01, 2016, bilateral MG 3d screening mammo w/cad. July 27, 2015, mammogram. No significant changes when compared with prior studies. ASSESSMENT: Benign, BI-RAD 2 RECOMMENDATION: Routine screening mammogram of both breasts in 1 year.
== END | disposition home or self-care (01) ==
LOC: RADUSWWP 06:58
PROVIDERS: ATTEND Obstetrics & Gynecology
DX: Z12.31 Encounter for screening mammogram for malignant neoplasm of breast (principal); M85.859 Other specified disorders of bone density and structure, unspecified thigh; Z90.710 Acquired absence of both cervix and uterus
CPT/HCPCS: 76830; 76856; 77063; 77067; 77080

== ENCOUNTER → 2018-05-05 | Outpatient (CLI) | payer MEDICAID ==
--- NOTE | 2018-05-05 14:20 | XR ---
EXAMINATION TYPE: XR chest 2V DATE OF EXAM: 05/05/2018 COMPARISON: 10/17/2017 HISTORY: Cough and congestion for one week TECHNIQUE: Frontal and lateral views of the chest are obtained. FINDINGS: There is slight right hemidiaphragm elevation. There is no focal air space opacity, pleura l effusion, or pneumothorax seen. The cardiac silhouette size is within normal limits. The osseous structures are intact. Right upper quadrant surgical clips are noted. Minimal multilevel degenerativ e changes of the thoracic spine are noted. IMPRESSION: No acute cardiopulmonary process.
== END ==
LOC: RADXRMAIN 13:37
PROVIDERS: ATTEND Physician Assistant
DX: R05 Cough (principal)
CPT/HCPCS: 71046

== ENCOUNTER → 2018-11-25 | Outpatient (CLI) | payer MEDICAID ==
--- NOTE | 2018-11-26 04:15 | CT ---
EXAMINATION TYPE: CT abdomen pelvis w con DATE OF EXAM: 11/25/2018 COMPARISON: 04/24/2012 HISTORY: 58-year-old female Left upper quadrant pain/rib pain x 1 year. Fullness and bloating. TECHNIQUE: Contiguous axial scanning of the abdomen and pelvis following administration of 100 ml Iso jason 300 IV contrast. Delayed images through the kidneys and coronal/sagittal reconstructions perform ed. CT DLP: 1012.20 mGycm Automated exposure control for dose reduction was used. FINDINGS: Heart upper limits of normal size without pericardial effusion. Mild dependent atelectasis posterior right lung base and strandy atelectasis inferior lingula. No pleural effusion. There is a small hiatal hernia. This may be a sliding hiatal hernia containing more moderate amount o f 4.8 cm abdominal fat just adjacent, increased in size from 2012 where it measured 3.6 cm. No focal liver lesion or biliary ductal dilatation. Portal venous system is patent. Cholecystectomy clips. Adrenal glands, spleen, and pancreas appear within normal limits. Bilateral extrarenal pelves. Kidney s otherwise unremarkable. No dilated small bowel, free fluid, or free air. No mesenteric or retroperitoneal lymphadenopathy. Unable to visualize the appendix. Oral contrast has progressed to the mid transverse colon. No significant stool burden. No pericolonic inflammatory change. Bladder is urine distended. Pelvic phleboliths. Uterus surgically absent. Ovaries are surgically abse nt or very small. No abnormal fluid collection in the pelvis or pelvic lymphadenopathy. Bones: Facet arthropathy lower lumbar spine. No osseous destructive process. IMPRESSION: 1. SMALL HIATAL HERNIA. THIS MAY REPRESENT A SLIDING HIATAL HERNIA THERE IS A MORE MODERATE AMOUNT OF HERNIATED 4.8 CM ABDOMINAL FAT LOCATED JUST ADJACENT, INCREASED IN SIZE FROM 3.6 CM IN 2012. 2. OTHERWISE, NO MASS OR ACUTE INFLAMMATORY PROCESS IDENTIFIED.
== END | disposition home or self-care (01) ==
LOC: RADCTMAIN 14:39
PROVIDERS: ATTEND Family Medicine
DX: K44.9 Diaphragmatic hernia without obstruction or gangrene (principal)
CPT/HCPCS: 74177; Q9967

== ENCOUNTER → 2019-06-09 | Outpatient (CLI) | payer MEDICAID ==
--- NOTE | 2019-06-11 13:38 | MM ---
Reason for exam: screening (asymptomatic). Last mammogram was performed 1 year and 1 month ago. Physical Findings: A clinical breast exam by your physician is recommended on an annual basis and results should be correlated with mammographic findings. MG 3D Screening Mammo W/Cad Bilateral CC and MLO view(s) were taken. Prior study comparison: April 29, 2018, bilateral MG 3d screening mammo w/cad. October 01, 2016, bilateral MG 3d screening mammo w/cad. The breast tissue is heterogeneously dense. This may lower the sensitivity of mammography. There is a new 9mm left lower outer quadrant mass 7cm from nipple. Benign appearing bilateral calcifications. Left cardiac loop recorder partially obscures left breast tissue in the upper inner quadrant. ASSESSMENT: Incomplete: need additional imaging evaluation, BI-RAD 0 RECOMMENDATION: Special view mammogram of the left breast. If lesion persists on supplemental views, image directed ultrasound is recommended. [facility] will attempt to contact patient to return for supplemental views and ultrasound if indicated.
== END | disposition home or self-care (01) ==
LOC: RADMAMWWP 08:18
PROVIDERS: ATTEND Obstetrics & Gynecology
DX: Z12.31 Encounter for screening mammogram for malignant neoplasm of breast (principal)
CPT/HCPCS: 77063; 77067

== ENCOUNTER → 2019-06-22 | Outpatient (CLI) | payer MEDICAID ==
--- NOTE | 2019-06-22 10:48 | MM ---
Reason for exam: additional evaluation requested from abnormal screening. Last mammogram was performed less than 1 month ago. History: Patient is postmenopausal. Family history of breast cancer in maternal cousin at age 45. Physical Findings: Nurse did not find any significant physical abnormalities on exam. MG 3D Work Up W/Cad LT Spot compression CC, spot compression MLO, and ML view(s) were taken of the left breast. Prior study comparison: June 09, 2019, bilateral MG 3d screening mammo w/cad. April 29, 2018, bilateral MG 3d screening mammo w/cad. The breast tissue is heterogeneously dense. This may lower the sensitivity of mammography. There is a persistent 9mm mass 7cm from nipple in the left lower outer quadrant. Left loop recorder noted. These results were verbally communicated with the patient and result sheet given to the patient on 06/22/19. ASSESSMENT: Incomplete: need additional imaging evaluation, BI-RAD 0 RECOMMENDATION: Ultrasound of the left breast. (lower outer quadrant)
--- NOTE | 2019-06-22 10:51 | USB ---
Reason for exam: additional evaluation requested from abnormal screening. History: Patient is postmenopausal. Family history of breast cancer in maternal cousin at age 45. US Breast Workup Limited LT Left limited breast ultrasound including focal area of concern, retroareolar and axilla demonstrates a 0.5 x 0.5 x 0.4cm probable complicated cyst, smooth cates, nearly anechoic at 3 o'clock, a 0.9 x 0.5 x 0.5cm cystic lesion at 4 o'clock and a 0.6 x 0.5 x 0.6cm cystic lesion at 5 o'clock. These results were verbally communicated with the patient and result sheet given to the patient on 06/22/19. ASSESSMENT: Probably benign, BI-RAD 3 RECOMMENDATION: Ultrasound of the left breast in 6 months.
== END | disposition home or self-care (01) ==
LOC: RADMAMWWP 08:49
PROVIDERS: ATTEND Obstetrics & Gynecology
DX: R92.8 Other abnormal and inconclusive findings on diagnostic imaging of breast (principal)
CPT/HCPCS: 77061; 77065

== ENCOUNTER → 2020-01-12 | Outpatient (CLI) | payer MEDICAID ==
--- NOTE | 2020-01-12 09:17 | USB ---
Reason for exam: follow-up at short interval from prior study. History: Patient is postmenopausal. Family history of breast cancer in maternal cousin at age 45. Physical Findings: Nurse did not find any significant physical abnormalities on exam. US Breast Limited LT Left limited breast ultrasound including focal area of concern, retroareolar and axilla demonstrates a 0.6 x 0.4 x 0.4cm cystic lesion at 3 o'clock and a 0.6 x 0.5 x 0.4cm cystic lesion at 4 o'clock. These results were verbally communicated with the patient and result sheet given to the patient on 01/12/20. ASSESSMENT: Benign, BI-RAD 2 RECOMMENDATION: Return to routine screening mammogram schedule for both breasts.
== END | disposition home or self-care (01) ==
LOC: RADUSWWP 08:19
PROVIDERS: ATTEND Obstetrics & Gynecology
DX: R92.8 Other abnormal and inconclusive findings on diagnostic imaging of breast (principal)

== ENCOUNTER → 2020-01-19 | Outpatient (CLI) | payer MEDICAID ==
[2020-01-19 08:57] LABS: Basophils % (A) 1 %; Eosinophils # (A) 0.4 k/uL (0-0.7); Eosinophils % (A) 5 %; HCT 46.3 % (34.0-46.0); HGB 14.8 gm/dL (11.4-16.0); Lymphocytes # (A) 1.6 k/uL (1.0-4.8); Lymphocytes % (A) 23 %; MCH 32.7 pg (25.0-35.0); MCV 102.1 fL (80.0-100.0); Mean Platelet Volume 8.4; Monocytes # (A) 0.5 k/uL (0-1.0); Monocytes % (A) 7 %; Neutrophils # (A) 4.4 k/uL (1.3-7.7); Neutrophils % (A) 63 %; Platelet Count 262 k/uL (150-450); RBC 4.54 m/uL (3.80-5.40)
[2020-01-19 16:15] LABS: African American GFR (CKD) 94.2 (60.0-200.0); Albumin 4.2 g/dL (3.80-4.90); Albumin/Globulin Ratio 1.75 (1.60-3.17); Anion Gap 8.5 mmol/L (4.00-12.00); BUN/Creat Ratio 16.25 Ratio (12.00-20.00); Calcium 9.7 mg/dL (8.7-10.3); Carbon Dioxide 24.5 mmol/L (21.6-31.8); Chol/HDL Ratio 3.16; Globulin 2.4 g/dL (1.6-3.3); LDL Cholesterol,Calculated 106.8 mg/dL (0.0-131.0); Non-African American GFR(CKD) 81.3 (60.0-200.0); Potassium 4.7 mmol/L (3.5-5.5); Total Bilirubin 0.5 mg/dL (0.2-1.2); Total Protein 6.6 g/dL (6.2-8.2); VLDL Calculation 42.2 mg/dL (5.00-40.00)
[2020-01-19 19:10] LABS: Hemoglobin A1C 6.9 % (4.0-6.0)
[2020-01-19 21:46] LABS: Microalbumin Creatinine Ratio <30 mg/g Creat (0-30); Urine Creatinine 113.4 mg/dL
== END | disposition home or self-care (01) ==
LOC: LABWHC1 07:28
PROVIDERS: ATTEND Family Medicine
DX: R73.01 Impaired fasting glucose (principal)
CPT/HCPCS: 36415; 80053; 80061; 82043; 82570; 83036; 84443; 85025

== ENCOUNTER → 2020-08-29 | Outpatient (CLI) | payer MEDICAID ==
[2020-08-29 11:13] LABS: African American GFR (CKD) 71.4 (60.0-200.0); Albumin 4.5 g/dL (3.80-4.90); Albumin/Globulin Ratio 1.96 (1.60-3.17); Anion Gap 10.6 mmol/L (4.00-12.00); Carbon Dioxide 27.4 mmol/L (21.6-31.8); Chol/HDL Ratio 3.16; Globulin 2.3 g/dL (1.6-3.3); Non-African American GFR(CKD) 61.6 (60.0-200.0); Potassium 4.6 mmol/L (3.5-5.5); Total Bilirubin 0.5 mg/dL (0.2-1.2); Total Protein 6.8 g/dL (6.2-8.2)
[2020-08-29 14:09] LABS: Hemoglobin A1C 6.8 % (4.0-6.0)
== END | disposition home or self-care (01) ==
LOC: LABWHC1 07:54
PROVIDERS: ATTEND Family Medicine
DX: I10 Essential (primary) hypertension (principal); R73.01 Impaired fasting glucose
CPT/HCPCS: 36415; 80053; 80061; 83036

== ENCOUNTER → 2020-11-18 | Outpatient (CLI) | payer MEDICAID ==
--- NOTE | 2020-11-23 13:20 | MM ---
Reason for exam: screening (asymptomatic). Last mammogram was performed 1 year and 5 months ago. History: Patient is postmenopausal. Family history of breast cancer in maternal cousin at age 45. Physical Findings: A clinical breast exam by your physician is recommended on an annual basis and results should be correlated with mammographic findings. MG 3D Screening Mammo W/Cad Bilateral CC and MLO view(s) were taken. Prior study comparison: June 22, 2019, left breast MG 3d work up w/cad LT. June 09, 2019, bilateral MG 3d screening mammo w/cad. April 29, 2018, bilateral MG 3d screening mammo w/cad. The breast tissue is heterogeneously dense. This may lower the sensitivity of mammography. Left loop recorder limits compression and obscures portions of the breast. ASSESSMENT: Benign, BI-RAD 2 RECOMMENDATION: Routine screening mammogram of both breasts in 1 year.
== END | disposition home or self-care (01) ==
LOC: RADMAMWWP 08:27
PROVIDERS: ATTEND Obstetrics & Gynecology
DX: Z12.31 Encounter for screening mammogram for malignant neoplasm of breast (principal); Z80.3 Family history of malignant neoplasm of breast
CPT/HCPCS: 77063; 77067

== ENCOUNTER → 2020-12-16 | Outpatient (CLI) | payer MEDICAID ==
[2020-12-16 11:31] LABS: INR 0.9 (<1.2); Partial Thromboplastin Time 23.9 sec (22.0-30.0); Prothrombin Time 10.2 sec (9.0-12.0)
[2020-12-16 15:49] LABS: Basophils # (A) 0.02 X 10*3/uL (0.00-0.10); Basophils % (A) 0.2 %; Eosinophils # (A) 0.13 X 10*3/uL (0.04-0.35); Eosinophils % (A) 1.6 %; HCT 45.2 % (37.2-46.3); HGB 14.7 g/dL (12.0-15.0); Lymphocytes # (A) 1.97 X 10*3/uL (0.90-5.00); Lymphocytes % (A) 24.1 %; MCH 33.2 pg (27.0-32.0); MCHC 32.5 g/dL (32.0-37.0); Mean Platelet Volume 10.9 fL (9.5-12.2); Monocytes # (A) 0.79 X 10*3/uL (0.20-1.00); Monocytes % (A) 9.7 %; Neutrophils # (A) 5.25 X 10*3/uL (1.80-7.70); Neutrophils % (A) 64.2 %; Platelet Count 280 X 10*3/uL (140-440); RBC 4.43 X 10*6/uL (4.10-5.20); RDW 12.5 % (11.5-14.5); WBC 8.18 X 10*3/uL (4.50-10.00)
[2020-12-16 18:53] LABS: African American GFR (CKD) 93.5 (60.0-200.0); Albumin 4.3 g/dL (3.80-4.90); Albumin/Globulin Ratio 1.65 (1.60-3.17); Anion Gap 8.6 mmol/L (4.00-12.00); Calcium 9.6 mg/dL (8.7-10.3); Carbon Dioxide 25.4 mmol/L (21.6-31.8); Globulin 2.6 g/dL (1.6-3.3); Non-African American GFR(CKD) 80.7 (60.0-200.0); Potassium 4.9 mmol/L (3.5-5.5); Total Bilirubin 0.4 mg/dL (0.3-1.2); Total Protein 6.9 g/dL (6.2-8.2)
== END | disposition home or self-care (01) ==
LOC: LABWHC1 10:06
PROVIDERS: ATTEND Physician Assistant
DX: R58 Hemorrhage, not elsewhere classified (principal)
CPT/HCPCS: 36415; 80053; 85025; 85610; 85730

== ENCOUNTER 2021-01-20 06:11 | Day surgery (SDC) | payer MEDICAID ==
[2021-01-17 08:25] VITALS: BMI 29.8
[~2021-01-20 06:11] MED LIST: LACTATED RINGERS 1,000 ML IV SCH
[2021-01-20 06:44] VITALS: RESP 16; TEMP 96.9
[2021-01-20 06:56] LABS: Glucose,Whole Blood 178 mg/dL (75-99)
[2021-01-20] MEDS ORDERED: PROPOFOL 10 MG/ML 20 ML VIAL IV ONE (07:02)
--- NOTE | 2021-01-20 07:24 | P.PCN ---
Date of Procedure: 01/20/21 Procedure(s) Performed: Brief history: Patient is a pleasant 60-year-old white female scheduled for an elective upper endoscopy as well as colonoscopy as a part of evaluation of GERD and screening for colorectal neoplasia Procedure performed: Esophagogastroduodenoscopy with biopsy Colonoscopy with snare polypectomy Preoperative diagnosis: GERD Screening for colon cancer Anesthesia: MAC Procedure: After informed consent was obtained from the patient was brought into the endoscopy unit and IV sedation was administered by anesthesia under continuous monitoring. Initially upper endoscopy was done. The Olympus GF 160 video endoscope was inserted inserted into the mouth and esophagus intubated without any difficulty and was gradually advanced into the stomach and duodenum and carefully examined. The bulb and second part of the duodenum appeared normal. The scope was then withdrawn into the stomach adequately insufflated with air and upon careful examination the antrum had mild gastritis and biopsies were done from this area. There were multiple polyps noted in the body the stomach which were biopsied. Rest of the and body, cardia and fundus appeared normal. The scope was then withdrawn into the esophagus. The GE junction was located at 38 cm to the incisors. Small hiatal hernia noted. It appeared regular with no erythema erosions or ulcerations. Rest of the esophagus appeared normal. Patient tolerated the procedure well. At this time the patient continued to remain sedation. Initial digital rectal examination was normal. Olympus CF 160 video colonoscope was then inserted into the rectum and gradually advanced to the cecum without any difficulty. Careful examination was performed as the scope was gradually being withdrawn. The prep was excellent. The cecum, ascending colon, transverse colon, descending colon, sigmoid colon and rectum appeared normal. Retroflexion was performed in the rectum and no lesions were noted. Patient tolerated the procedure well. Impression: 1. Upper Endoscopy revealed small hiatal hernia, multiple small gastric polyps and mild antral gastritis 2. Colonoscopy revealed 5 mm ascending colon polyp and a 1 cm rectal polyp status post polypectomy Recommendations: Findings of this examination were discussed with the patient as well as her family. She was advised to follow with the biopsy results. She will continue with Nexium 20 mg daily and follow antireflux measures. If the biopsy result adenoma she can have a repeat colonoscopy in 3 years
[2021-01-20 07:29] VITALS: BP 126/80; PULSE 86
== END 2021-01-20 08:20 | disposition home or self-care (01) ==
LOC: ORWHC2ENDO 06:11
PROVIDERS: ATTEND Internal Medicine Gastroenterology
DX: Z12.11 Encounter for screening for malignant neoplasm of colon (principal); K29.50 Unspecified chronic gastritis without bleeding; K31.7 Polyp of stomach and duodenum; D12.8 Benign neoplasm of rectum; D12.2 Benign neoplasm of ascending colon; Z79.899 Other long term (current) drug therapy; I10 Essential (primary) hypertension
CPT/HCPCS: 88305; 45385; 43239; J2704

== ENCOUNTER → 2021-03-17 | Outpatient (CLI) | payer MEDICAID ==
--- NOTE | 2021-03-17 11:10 | BD ---
EXAMINATION TYPE: Axial Bone Density DATE OF EXAM: 03/17/2021 COMPARISON: 04.29.2018 CLINICAL HISTORY: 60 YR OLD FEMALE......ICD-10 CODE: M85.80 OSTEOPENIA Height: 65.4 Weight: 188 FRAX RISK QUESTIONS: History of Fracture in Adulthood: YES RISK FACTORS HISTORY OF: LT HUMERUS AND BOTH FOREARMS, AN ADULT History of Wrist Fracture: YES, BOTH AN ADULT Postmenopausal woman: YES, AT AGE 53 Hyperparathyroidism: NO Adrenal Insufficiency: NO MEDICATIONS: Additional Medications: BP MEDS, REFLUX MEDS, METFORMIN, VIT D VAG HORMONAL CREAM FOR ABOUT 3 MOS ON LY, THIS YR Additional History: HYPERTENSION, REFLUX, DIABETES, EXAM MEASUREMENTS: Bone mineral densitometry was performed using the [employer] System. Bone mineral density as measured about the Lumbar spine is: ----- L1-L4(G/cm2): 1.095 T Score Values are as follows: ----- L1: -0.6 ----- L2: -0.8 ----- L3: -1.3 ----- L4: -0.3 ----- L1-L4: -0.7 Bone mineral density has: Decreased -1.3% since study of: 04.29.2018 Bone mineral density about the R hip (g/cm2): 0.838 Bone mineral density about the L hip (g/cm2): 0.868 T Score values are as follows: -----R Neck: -1.5 -----L Neck: -1.4 -----R Total: -1.3 -----L Total: -1.1 Bone mineral density has: Decreased -5.4% since study of: 04.29.2018 FRAX%s: THERE IS A 13.1% CHANCE FOR A MAJOR OSTEOPOROTIC FX AND A 1.1% FOR HIP.....PROBABILITY FO R FX IN 10 YRS TIME IMPRESSION: Osteopenia (T Score between -2.5 and -1). There is slightly increased risk of fracture and the patient may be considered for treatment. Re-Screen 2-5 years. NOTE: T-SCORE=SD OF THE YOUNG ADULT MEAN.
== END | disposition home or self-care (01) ==
LOC: RADBDWWP 09:53
PROVIDERS: ATTEND Obstetrics & Gynecology
DX: M85.80 Other specified disorders of bone density and structure, unspecified site (principal)
CPT/HCPCS: 77080

== ENCOUNTER → 2021-05-12 | Outpatient (CLI) | payer MEDICAID ==
[2021-05-12 15:20] LABS: HCT 47.5 % (37.2-46.3); HGB 15.3 g/dL (12.0-15.0); MCH 32.8 pg (27.0-32.0); MCHC 32.2 g/dL (32.0-37.0); MCV 101.7 fL (80.0-97.0); Mean Platelet Volume 10.8 fL (9.5-12.2); Platelet Count 254 X 10*3/uL (140-440); RBC 4.67 X 10*6/uL (4.10-5.20)
[2021-05-12 17:05] LABS: ALT 27 U/L (8-44); AST 21 U/L (13-35); African American GFR (CKD) 93.5 (60.0-200.0); Albumin 4.5 g/dL (3.8-4.9); Albumin/Globulin Ratio 1.64 (1.60-3.17); Alkaline Phosphatase 115 U/L (41-126); Blood Urea Nitrogen 13.6 mg/dL (9.0-27.0); Calcium 9.7 mg/dL (8.7-10.3); Carbon Dioxide 22.7 mmol/L (20.0-27.5); Chloride 100 mmol/L (96-109); Chol/HDL Ratio 3.57 Ratio; Globulin 2.7 g/dL (1.6-3.3); Glucose 182 mg/dL (70-110); LDL Cholesterol,Calculated 144.4 mg/dL (0.0-131.0); Non-African American GFR(CKD) 80.7 (60.0-200.0); Potassium 4.6 mmol/L (3.5-5.5); Sodium 137 mmol/L (135-145); Total Protein 7.2 g/dL (6.2-8.2)
[2021-05-13 08:14] LABS: Microalbumin Creatinine Ratio <30 mg/g Creat (0-30)
== END | disposition home or self-care (01) ==
LOC: LABWHC1 08:33
PROVIDERS: ATTEND Family Medicine
DX: Z00.01 Encounter for general adult medical examination with abnormal findings (principal); R73.01 Impaired fasting glucose; L65.9 Nonscarring hair loss, unspecified
CPT/HCPCS: 36415; 80053; 80061; 82043; 82306; 82570; 83036; 84443; 85027

== ENCOUNTER → 2021-06-06 | Outpatient (CLI) | payer MEDICAID, OTHER | END | disposition home or self-care (01) | LOC: LABWHC1 09:12 | PROVIDERS: ATTEND Emergency Medicine | DX: Z20.822 Contact with and (suspected) exposure to COVID-19 (principal) | CPT/HCPCS: 87635 ==

== ENCOUNTER → 2021-06-07 | Outpatient (CLI) | payer MEDICAID, OTHER | END | disposition home or self-care (01) | LOC: LABWHC1 10:23 | PROVIDERS: ATTEND Emergency Medicine | DX: Z20.822 Contact with and (suspected) exposure to COVID-19 (principal) | CPT/HCPCS: 87635 ==

== ENCOUNTER → 2021-12-08 | Outpatient (CLI) | payer MEDICAID ==
[2021-12-08 14:22] LABS: Basophils # (A) 0.03 X 10*3/uL (0.00-0.10); Basophils % (A) 0.4 %; Eosinophils # (A) 0.11 X 10*3/uL (0.04-0.35); Eosinophils % (A) 1.6 %; HCT 44.7 % (37.2-46.3); HGB 14.4 g/dL (12.0-15.0); Immature Grans, Automated 0.4 %; Lymphocytes # (A) 1.61 X 10*3/uL (0.90-5.00); Lymphocytes % (A) 22.7 %; MCH 32.4 pg (27.0-32.0); MCHC 32.2 g/dL (32.0-37.0); MCV 100.7 fL (80.0-97.0); Mean Platelet Volume 10.5 fL (9.5-12.2); Monocytes # (A) 0.62 X 10*3/uL (0.20-1.00); Monocytes % (A) 8.7 %; NRBC Per 100 WBC 0 /100 WBCS (0.0-0.0); Neutrophils # (A) 4.69 X 10*3/uL (1.80-7.70); Neutrophils % (A) 66.2 %; Platelet Count 279 X 10*3/uL (140-440); RBC 4.44 X 10*6/uL (4.10-5.20); RDW 12.4 % (11.5-14.5); WBC 7.09 X 10*3/uL (4.50-10.00)
[2021-12-08 15:03] LABS: ALT 14 U/L (8-44); AST 16 U/L (13-35); African American GFR (CKD) 109.1 (60.0-200.0); Albumin 4.2 g/dL (3.8-4.9); Albumin/Globulin Ratio 1.68 (1.60-3.17); Alkaline Phosphatase 104 U/L (41-126); Blood Urea Nitrogen 10.5 mg/dL (9.0-27.0); Calcium 9.7 mg/dL (8.7-10.3); Carbon Dioxide 24.8 mmol/L (20.0-27.5); Chloride 102 mmol/L (96-109); Chol/HDL Ratio 3.15 Ratio; Globulin 2.5 g/dL (1.6-3.3); Glucose 137 mg/dL (70-110); LDL Cholesterol,Calculated 125.1 mg/dL (0.0-131.0); Non-African American GFR(CKD) 94.2 (60.0-200.0); Potassium 4.8 mmol/L (3.5-5.5); Sodium 137 mmol/L (135-145); Total Protein 6.7 g/dL (6.2-8.2)
== END | disposition home or self-care (01) ==
LOC: LABWHC1 08:38
PROVIDERS: ATTEND Family Medicine
DX: E11.9 Type 2 diabetes mellitus without complications (principal)
CPT/HCPCS: 36415; 80053; 80061; 82043; 82570; 83036; 84443; 85025

== ENCOUNTER → 2022-01-04 | Outpatient (CLI) | payer MEDICAID ==
--- NOTE | 2022-01-07 18:00 | MM ---
Reason for Exam: Screening (asymptomatic). Last mammogram was performed 1 year(s) and 1 month(s) ago. Patient History: Menarche at age 11. First Full-Term at age 21. Hysterectomy at age 54. Postmenopausal. Patient has history of breast feeding. Maternal cousin had breast cancer, age 45. Risk Values: Sonia 5 year model risk: 1.4%. NCI Lifetime model risk: 7.2%. Prior Study Comparison: 06/09/2019 Bilateral Screening Mammogram, [facility]. 06/22/2019 Left Diagnostic Mammogram, [facility]. 11/18/2020 Bilateral Screening Mammogram, [facility]. Tissue Density: The breast tissue is heterogeneously dense. This may lower the sensitivity of mammography. Findings: Analyzed By CAD. Chronic underlying nodularity which becomes more apparent on 3 images. Loop recorder device projects over the medial aspect of the left breast. A few scattered benign round and punctate microcalcifications are redemonstrated. No significant change from prior exams. Overall Assessment: Benign, BI-RAD 2 Management: Screening Mammogram of both breasts in 1 year. 1. Patient should continue monthly self breast exams. 2. A clinical breast exam by your physician is recommended on an annual basis. 3. This exam should not preclude additional follow-up of suspicious palpable abnormalities. Electronically signed and approved by: Nando Lino M.D. Radiologist
== END | disposition home or self-care (01) ==
LOC: RADMAMWWP 16:38
PROVIDERS: ATTEND Obstetrics & Gynecology
DX: Z12.31 Encounter for screening mammogram for malignant neoplasm of breast (principal)
CPT/HCPCS: 77063; 77067

== ENCOUNTER → 2022-06-07 | Outpatient (CLI) | payer MEDICAID ==
--- NOTE | 2022-06-07 16:19 | XR ---
EXAMINATION TYPE: XR ribs LT w pa chest xray DATE OF EXAM: 06/07/2022 COMPARISON: Chest x-ray 05/05/2018 HISTORY: Fall, pain TECHNIQUE: Frontal chest, 2 view left ribs FINDINGS: Heart size is normal. Pulmonary vasculature is normal. Lungs are clear. Loop recorder is within the left breast. No displaced rib fractures are identified. No pneumothorax is evident. IMPRESSION: 1. No acute rib abnormality to account for left-sided pain.
== END | disposition home or self-care (01) ==
LOC: RADXRMAIN 13:35
PROVIDERS: ATTEND Physician Assistant
DX: R07.81 Pleurodynia (principal)

== ENCOUNTER → 2022-07-10 | Outpatient (CLI) | payer MEDICAID ==
[2022-07-10 10:40] LABS: ALT 25 U/L (8-44); AST 18 U/L (13-35); African American GFR (CKD) 92.2 (60.0-200.0); Albumin 4.3 g/dL (3.8-4.9); Albumin/Globulin Ratio 1.87 (1.60-3.17); Alkaline Phosphatase 103 U/L (41-126); BUN/Creat Ratio 17.13 Ratio (12.00-20.00); Blood Urea Nitrogen 13.7 mg/dL (9.0-27.0); Chloride 101 mmol/L (96-109); Chol/HDL Ratio 2.77 Ratio; Globulin 2.3 g/dL (1.6-3.3); Glucose 152 mg/dL (70-110); LDL Cholesterol,Calculated 109.6 mg/dL (0.0-131.0); Non-African American GFR(CKD) 79.6 (60.0-200.0); Potassium 4.5 mmol/L (3.5-5.5); Sodium 138 mmol/L (135-145); Total Protein 6.6 g/dL (6.2-8.2)
== END | disposition home or self-care (01) ==
LOC: LABWHC1 07:56
PROVIDERS: ATTEND Family Medicine
DX: E11.9 Type 2 diabetes mellitus without complications (principal)
CPT/HCPCS: 36415; 80053; 80061; 83036

== ENCOUNTER → 2023-01-30 | Outpatient (CLI) | payer MEDICAID ==
[2023-01-30 16:20] LABS: Basophils # (A) 0.04 X 10*3/uL (0.00-0.10); Basophils % (A) 0.6 %; Eosinophils # (A) 0.13 X 10*3/uL (0.04-0.35); Eosinophils % (A) 1.8 %; HCT 43.8 % (37.2-46.3); HGB 14.7 d/dL (12.0-15.0); Lymphocytes # (A) 2.05 X 10*3/uL (0.90-5.00); MCH 33.4 pg (27.0-32.0); MCHC 33.6 d/dL (32.0-37.0); MCV 99.5 FL (80.0-97.0); Mean Platelet Volume 10.6 FL (9.5-12.2); Monocytes # (A) 0.64 X 10*3/uL (0.20-1.00); NRBC Per 100 WBC 0 X 10*3/uL (0.00-0.01); Neutrophils % (A) 59.3 %; Platelet Count 258 X 10*3/uL (140-440); RDW 12.3 % (11.5-14.5); WBC 7.08 X 10*3/uL (4.50-10.00)
[2023-01-30 16:39] LABS: Blood Urea Nitrogen 10.8 mg/dL (9.0-27.0); Calcium 9.8 mg/dL (8.7-10.3); Carbon Dioxide 24.8 mmol/L (21.6-31.8); Chloride 102 mmol/L (96-109); Chol/HDL Ratio 2.95 Ratio; Glucose 165 mg/dL (70-110); LDL Cholesterol,Calculated 120.9 mg/dL (0.0-131.0); Potassium 5.1 mmol/L (3.5-5.5); Sodium 138 mmol/L (135-145); Total Protein 6.8 d/dL (6.2-8.2)
[2023-01-30 16:40] LABS: ALT 19 U/L (8-44); AST 19 U/L (13-35); Albumin 4.2 d/dL (3.8-4.9); Albumin/Globulin Ratio 1.62 Ratio (1.60-3.17); Alkaline Phosphatase 104 U/L (41-126); Globulin 2.6 d/dL (1.6-3.3); Total Bilirubin 0.3 mg/dL (0.3-1.2)
[2023-01-30 21:28] LABS: Microalbumin Creatinine Ratio <6 mg/g Cr (0-30)
== END | disposition home or self-care (01) ==
LOC: LABWHC1 09:17
PROVIDERS: ATTEND Family Medicine
DX: E11.9 Type 2 diabetes mellitus without complications (principal)
CPT/HCPCS: 36415; 80053; 80061; 82043; 82570; 83036; 84443; 85025

== ENCOUNTER → 2023-03-18 | Outpatient (CLI) | payer MEDICAID ==
--- NOTE | 2023-03-18 12:18 | MM ---
Reason for Exam: Screening (asymptomatic). Last mammogram was performed 1 year(s) and 3 month(s) ago. Indicated Problems: Pain of the right side (Global) for 1 Week(s). Patient History: Menarche at age 11. First Full-Term at age 21. Hysterectomy at age 54. Postmenopausal. Patient has history of breast feeding. Maternal cousin had breast cancer, age 45. Risk Values: Sonia 5 year model risk: 1.5%. NCI Lifetime model risk: 7.0%. Prior Study Comparison: 06/22/2019 Left Diagnostic Mammogram, [facility]. 11/18/2020 Bilateral Screening Mammogram, [facility]. 01/04/2022 Bilateral MG 3D screening mammo w/cad, [facility]. Tissue Density: The breast tissue is heterogeneously dense. This may lower the sensitivity of mammography. Findings: Analyzed By CAD. There is no suspicious group of microcalcifications or new suspicious mass. Loop recorder left breast. Overall Assessment: Negative, BI-RAD 1 Management: Screening Mammogram of both breasts in [address] [facility] will attempt to contact patient to return for supplemental views and ultrasound if indicated. Patient should continue monthly self-breast exams. A clinical breast exam by your physician is recommended on an annual basis. This exam should not preclude additional follow-up of suspicious palpable abnormalities. Note on Sonia scores and lifetime risk: 1. A Sonia score greater than 3% is considered moderate risk. If this is the case, consider specialist referral to assess eligibility for a risk reducing agent. 2. If overall lifetime risk for the development of breast cancer is 20% or higher, the patient may qualify for future screening with alternating mammogram and breast MRI. Electronically signed and approved by: Pan Baires DO
--- NOTE | 2023-03-18 13:15 | BD ---
EXAMINATION TYPE: Axial Bone Density DATE OF EXAM: 03/18/2023 CLINICAL HISTORY: 62 years old Female. ICD-10 CODE: Z87.81 HX OF FRACTURE Height: 64.5 Weight: 184 FRAX RISK QUESTIONS: Family History (Parent hip fracture): no hip fx, but other fxs History of Fracture in Adulthood: yes RISK FACTORS HISTORY OF: hx of both forearm and humeral fx as an adult, and right foot 2021 History of Wrist Fracture: yes, both as an adult Family History of Osteoporosis: yes, with fxs Postmenopausal woman: at 53 Hyperparathyroidism: no Adrenal Insufficiency: no MEDICATIONS: Additional Medications: bp meds, reflux meds, metformin, vit d, hormonal cream, Additional History: hypertension, reflux and diabetes, osteoarthritis, EXAM MEASUREMENTS: Bone mineral densitometry was performed using the [employer] System. Bone mineral density as measured about the Lumbar spine is: ----- L1-L4(G/cm2): 1.078 T Score Values are as follows: ----- L1: -1.4 ----- L2: -0.9 ----- L3: -1.0 ----- L4: -0.4 ----- L1-L4: -0.8 Z Score Values are as follows: ----- L1: -0.7 ----- L2: -0.2 ----- L3: -0.3 ----- L4: 0.3 ----- L1-L4: -0.1 Bone mineral density has: Decreased -1.6% since study of: 03.17.2021 Bone mineral density about the R hip (g/cm2): 0.829 Bone mineral density about the L hip (g/cm2): 0.863 T Score values are as follows: -----R Neck: -1.8 -----L Neck: -1.8 -----R Total: -1.4 -----L Total: -1.1 Z Score values are as follows: -----R Neck: -0.9 -----L Neck: -0.8 -----R Total: -0.8 -----L Total: -0.6 Bone mineral density has: Decreased -0.8% since study of: 03.17.2021 FRAX%s: The graph provided illustrates a 15.1% chance for a major osteoporotic fx and a 1.7% chance f or the hips probability for fx in 10 years time. IMPRESSION: Osteopenia (T Score between -2.5 and -1). There is slightly increased risk of fracture and the patient may be considered for treatment. Re-Screen 2-5 years. NOTE: T-SCORE=SD OF THE YOUNG ADULT MEAN.
== END | disposition home or self-care (01) ==
LOC: RADMAMWWP 11:48
PROVIDERS: ATTEND Family Medicine
DX: Z12.31 Encounter for screening mammogram for malignant neoplasm of breast (principal); M85.89 Other specified disorders of bone density and structure, multiple sites; Z78.0 Asymptomatic menopausal state; Z80.3 Family history of malignant neoplasm of breast; Z87.81 Personal history of (healed) traumatic fracture
CPT/HCPCS: 77063; 77067; 77080

== ENCOUNTER → 2023-05-21 | Outpatient (CLI) | payer MEDICAID ==
--- NOTE | 2023-05-21 15:57 | US ---
EXAMINATION TYPE: US chest DATE OF EXAM: 05/21/2023 COMPARISON: NONE CLINICAL INDICATION: Female, 62 years old with history of R22.2 swelling; Lump found by massage thera pist about 1 month ago. Patient has no signs or symptoms or history of illness or trauma; patient sta ted area has gotten smaller TECHNIQUE: Targeted ultrasound of the right EXAM MEASUREMENTS: Complex vascular area with through transmission at patients AOC Abscess or sebaceous cyst measuring 1.5 x 0.8 x 1.5 cm IMPRESSIONS: Circumscribed hypoechoic area in the area of concern within the subcutaneous tissues. Co rrelate for abscess and sebaceous cyst.
== END | disposition home or self-care (01) ==
LOC: RADUSWWP 14:50
PROVIDERS: ATTEND Family Medicine
DX: R22.2 Localized swelling, mass and lump, trunk (principal)

== ENCOUNTER → 2023-08-03 | Outpatient (CLI) | payer MEDICAID ==
[2023-08-03 22:24] LABS: BUN/Creat Ratio 16.88 Ratio (12.00-20.00); Blood Urea Nitrogen 13.5 mg/dL (9.0-27.0); Carbon Dioxide 24.4 mmol/L (21.6-31.8); Chloride 103 mmol/L (96-109); Chol/HDL Ratio 3.02 Ratio; Glucose 179 mg/dL (70-110); LDL Cholesterol,Calculated 130.5 mg/dL (0.0-131.0); Potassium 4.7 mmol/L (3.5-5.5); Sodium 139 mmol/L (135-145)
[2023-08-03 22:25] LABS: ALT 28 U/L (8-44); AST 22 U/L (13-35); Albumin 4.1 g/dL (3.8-4.9); Albumin/Globulin Ratio 1.58 Ratio (1.60-3.17); Alkaline Phosphatase 114 U/L (41-126); Globulin 2.6 g/dL (1.6-3.3); T4, Free (Free Thyroxine) 1.45 ng/dL (0.80-1.80); Total Bilirubin 0.3 mg/dL (0.3-1.2); Total Protein 6.7 g/dL (6.2-8.2)
== END | disposition home or self-care (01) ==
LOC: LABWHC1 09:47
PROVIDERS: ATTEND Internal Medicine Clinical Cardiac Electrophysiology
DX: E11.9 Type 2 diabetes mellitus without complications (principal); R00.0 Tachycardia, unspecified
CPT/HCPCS: 36415; 80053; 80061; 83036; 84439; 84443; 84481

== ENCOUNTER → 2024-03-02 | Outpatient (CLI) | payer MEDICAID ==
[2024-03-02 15:52] LABS: ALT 20 U/L (8-44); AST 20 U/L (13-35); Albumin 4.2 g/dL (3.8-4.9); Albumin/Globulin Ratio 1.45 Ratio (1.60-3.17); Alkaline Phosphatase 123 U/L (41-126); BUN/Creat Ratio 19.43 Ratio (12.00-20.00); Blood Urea Nitrogen 13.6 mg/dL (9.0-27.0); Calcium 9.7 mg/dL (8.7-10.3); Carbon Dioxide 22.8 mmol/L (21.6-31.8); Chloride 101 mmol/L (96-109); Chol/HDL Ratio 3.04 Ratio; Globulin 2.9 g/dL (1.6-3.3); Glucose 148 mg/dL (70-110); LDL Cholesterol,Calculated 132.1 mg/dL (0.0-131.0); Potassium 4.6 mmol/L (3.5-5.5); Sodium 138 mmol/L (135-145); Total Bilirubin 0.4 mg/dL (0.3-1.2); Total Protein 7.1 g/dL (6.2-8.2)
[2024-03-02 15:55] LABS: Basophils # (A) 0.04 X 10*3/uL (0.00-0.10); Basophils % (A) 0.5 %; Eosinophils # (A) 0.12 X 10*3/uL (0.04-0.35); Eosinophils % (A) 1.5 %; HCT 47.1 % (37.2-46.3); HGB 15.7 g/dL (12.0-15.0); Lymphocytes # (A) 1.87 X 10*3/uL (0.90-5.00); Lymphocytes % (A) 23.5 %; MCH 33.5 pg (27.0-32.0); MCHC 33.3 g/dL (32.0-37.0); MCV 100.4 FL (80.0-97.0); Mean Platelet Volume 10.8 FL (9.5-12.2); Monocytes # (A) 0.76 X 10*3/uL (0.20-1.00); Monocytes % (A) 9.6 %; NRBC Per 100 WBC 0 X 10*3/uL (0.00-0.01); Neutrophils # (A) 5.12 X 10*3/uL (1.80-7.70); Neutrophils % (A) 64.4 %; Platelet Count 265 X 10*3/uL (140-440); RBC 4.69 X 10*6/uL (4.10-5.20); RDW 12.8 % (11.5-14.5); WBC 7.95 X 10*3/uL (4.50-10.00)
[2024-03-02 22:05] LABS: Microalbumin Creatinine Ratio <9 mg/g Cr (0-30)
== END | disposition home or self-care (01) ==
LOC: LABWHC1 08:52
PROVIDERS: ATTEND Family Medicine
DX: E11.9 Type 2 diabetes mellitus without complications (principal)
CPT/HCPCS: 36415; 80053; 80061; 82043; 82570; 83036; 84443; 85025

== ENCOUNTER → 2024-03-19 | Outpatient (CLI) | payer MEDICAID ==
--- NOTE | 2024-03-19 10:52 | MM ---
Reason for Exam: Screening (asymptomatic). Last screening mammogram was performed 12 month(s) ago. Patient History: Menarche at age 11. First Full-Term at age 21. Hysterectomy at age 54. Postmenopausal. Patient has history of breast feeding. Maternal cousin had breast cancer, age 45. Risk Values: Sonia 5 year model risk: 1.5%. NCI Lifetime model risk: 6.8%. Prior Study Comparison: 11/18/2020 Bilateral Screening Mammogram, [facility]. 01/04/2022 Bilateral MG 3D screening mammo w/cad, [facility]. 03/18/2023 Bilateral MG 3D screening mammo w/cad, [facility]. Tissue Density: The breasts are heterogeneously dense, which may obscure small masses. Findings: Analyzed By CAD. There is no suspicious group of microcalcifications or new suspicious mass in either breast. Overall Assessment: Benign, BI-RAD 2 Management: Screening Mammogram of both breasts in 1 year. . Patient should continue monthly self-breast exams. A clinical breast exam by your physician is recommended on an annual basis. This exam should not preclude additional follow-up of suspicious palpable abnormalities. Note on Sonia scores and lifetime risk: 1. A Sonia score greater than 3% is considered moderate risk. If this is the case, consider specialist referral to assess eligibility for a risk reducing agent. 2. If overall lifetime risk for the development of breast cancer is 20% or higher, the patient may qualify for future screening with alternating mammogram and breast MRI. [facility], , 03/19/2024 10:49 AM. Electronically signed and approved by: David Bruner M.D. Radiologis
== END | disposition home or self-care (01) ==
LOC: RADMAMWWP 07:37
PROVIDERS: ATTEND Family Medicine
DX: Z12.31 Encounter for screening mammogram for malignant neoplasm of breast
CPT/HCPCS: 77063; 77067

== ENCOUNTER 2024-08-21 06:27 | Day surgery (SDC) | payer MEDICAID, BC ==
[2024-08-20 10:51] VITALS: BMI 29.7
[2024-08-21 07:13] VITALS: TEMP 97.7
[2024-08-21] MEDS: IV FLUID CONTINUATION 1,000 ML IV ONE (07:13)
[2024-08-21] MEDS: LACTATED RINGERS 1,000 ML IV SCH (07:14)
[2024-08-21] MEDS: ONDANSETRON 4 MG/2 ML VIAL IVP STA (07:15)
[2024-08-21] MEDS ORDERED: PROPOFOL 10 MG/ML 20 ML VIAL IV ONE (07:22)
[2024-08-21 07:24] LABS: Glucose,Whole Blood 194 mg/dL (70-110)
--- NOTE | 2024-08-21 07:46 | P.PCN ---
Date of Procedure: 08/21/24 Procedure(s) Performed: Brief history: Patient is a pleasant 64-year-old white female scheduled for an elective upper endoscopy as well as colonoscopy as a part of evaluation of GERD, screening for history of colon polyps and family history of colon cancer. Mother was diagnosed with colon cancer. Procedure performed: Esophagogastroduodenoscopy with biopsy Colonoscopy Preoperative diagnosis: GERD Screening for history of colon polyps and family history of colon cancer Anesthesia: MAC Procedure: After informed consent was obtained from the patient was brought into the endoscopy unit and IV sedation was administered by anesthesia under continuous monitoring. Initially upper endoscopy was done. The Olympus GF 160 video endoscope was inserted inserted into the mouth and esophagus intubated without any difficulty and was gradually advanced into the stomach and duodenum and carefully examined. The bulb and second part of the duodenum appeared normal. The scope was then withdrawn into the stomach adequately insufflated with air and upon careful examination the antrum and mild gastritis and biopsies were done from this area. Mucosa of the body, cardia and fundus appeared normal. Small gastric polyps noted throughout the body of the stomach which were biopsied. The scope was then withdrawn into the esophagus. Mild hiatal hernia noted. The GE junction was located at 40 cm to the incisors. It appeared regular with no erythema erosions or ulcerations. Rest of the esophagus appe ared normal. Patient tolerated the procedure well. At this time the patient continued to remain sedation. Initial digital rectal examination was normal. Olympus CF 160 video colonoscope was then inserted into the rectum and gradually advanced to the cecum without any difficulty. Careful examination was performed as the scope was gradually being withdrawn. The prep was excellent. The cecum, ascending colon, transverse colon, descending colon, sigmoid colon and rectum appeared normal. Diverticulosis. Retroflexion was performed in the rectum and no lesions were noted. Patient tolerated the procedure well. Impression: 1. Upper endoscopy revealed small hiatal hernia, mild gastritis and multiple gastric polyps 2. Colonoscopy revealed scattered sigmoid diverticulosis but no evidence of colorectal neoplasia Recommendations: Findings of this examination were discussed with the patient as well as. She was advised to follow-up with the biopsy results. Recommend repeat screening c olonoscopy in 5 years because of the family history of colon cancer
[2024-08-21 08:11] VITALS: BP 148/90; PULSE 87; RESP 16
== END 2024-08-21 08:28 | disposition home or self-care (01) ==
LOC: ORWHC2ENDO 06:27
PROVIDERS: ATTEND Internal Medicine Gastroenterology
DX: Z12.11 Encounter for screening for malignant neoplasm of colon (principal); K57.30 Diverticulosis of large intestine without perforation or abscess without bleeding; K21.9 Gastro-esophageal reflux disease without esophagitis; K44.9 Diaphragmatic hernia without obstruction or gangrene; K29.50 Unspecified chronic gastritis without bleeding; K31.7 Polyp of stomach and duodenum; Z86.0100 Personal history of colon polyps, unspecified; Z80.0 Family history of malignant neoplasm of digestive organs; I10 Essential (primary) hypertension; E11.9 Type 2 diabetes mellitus without complications; Z79.899 Other long term (current) drug therapy; Z90.710 Acquired absence of both cervix and uterus; Z90.49 Acquired absence of other specified parts of digestive tract; Z90.89 Acquired absence of other organs
CPT/HCPCS: 45378; 43239; J2405; J2704; 88305